=== PATIENT | female | born 1985 | race Caucasian/White ===

== ENCOUNTER 2020-11-07 07:06 | Day surgery (SDC) | payer OTHER ==
[~2020-11-07] VITALS: Ht 162.6 cm; Wt 86.9 kg
[~2020-11-07 07:06] MED LIST: AMIT50 PO; ASPI325 PO; Amitriptyline H10 MG PO; BENTYL20 MG PO; BUPRENO-NALOX1 EACH SL; Bactrim Ds Tab1 EACH PO; CEPH500 PO; CIPR500 PO; CIPRO500 MG PO; CYCL10 PO; Celebrex200 MG PO; Ciprodex Otic7.5 ML LEFTEAR; Cleocin HCl150 MG PO; Cleocin HCl300 MG PO; DICL25ER PO; ESTR2 PO; HYDACE5 PO; HYDR1TAB94 PO; HYOS.125 SL; IBUP600; IBUP600 PO; IBUP800 PO; Ibuprofen Ib200 MG PO; KETO10 PO; LEVFLO500 PO; LORCET 5-325 M1 EACH PO; Levaquin750 MG PO; Loperamide2 MG PO; MEDR150I IM; METPRE4DP PO; METR500 PO; NAPR220 PO; NAPR550 PO; NITR100CA PO; Naprosyn500 MG PO; Norco 5-325 Ta1 EACH PO; Nortriptyline H25 MG PO; OXYACE5T; OXYACE5T PO; OXYB5 PO; OXYC1TAB11 PO; PARO20 PO; POLY17UD PO; PRAZ1 PO; PROM25 PO; Percocet 10-321 EACH PO; Percocet 5-3251 EACH PO; Peridex480 ML SS; Pyridium100 MG PO; ROXICODONE5 MG PO; SERT50 PO; SULTRIDS PO; TRAZ100 PO; TRAZ50; Ultram50 MG PO; Zithromax250 MG PO; Zofran Odt4 MG PO; Zofran Odt4 MG SL
--- NOTE | 2020-11-07 08:12 | NUR ---
Ambulatory in Day Surgery History, Chart, Medications and Allergies reviewed before start of procedure. Pre-Op teaching done. Pt verbalizes understanding. Lungs clear T/O to Auscultation.
--- NOTE | 2020-11-07 11:03 | NUR ---
INTO STEP RECIEVED REPORT VSS. INCISIONS WITH BANDAIDS CDI
--- NOTE | 2020-11-07 11:47 | NUR ---
Discharge instructions reviewed with patient. Patient verbalizes understanding. Copy given to patient to take home. Patient States Post-Procedure ride home has been arranged. Discharged via wheelchair to private car for ride home.
== END 2020-11-07 11:45 | disposition home or self-care (01) ==
LOC: ORSCMMR 07:06 → ORD 09:00 → ORSCMMR 11:45
PROVIDERS: Surgery
PROC: 0FT44ZZ Resection of Gallbladder, Percutaneous Endoscopic Approach (ICD-10-PCS; principal; 2020-11-07 09:00)
PROC: BF031ZZ Plain Radiography of Gallbladder and Bile Ducts using Low Osmolar Contrast (ICD-10-PCS; principal; 2020-11-07 09:00)
DX: K80.20 Calculus of gallbladder without cholecystitis without obstruction (principal); F17.210 Nicotine dependence, cigarettes, uncomplicated; Z79.899 Other long term (current) drug therapy
CPT/HCPCS: 88304; A9270; C1729; J0690; J1100; J1885; J2250; J2405; J2704; J2710; J2765; J3010; J7120

== ENCOUNTER → 2023-10-08 | Outpatient (CLI) | payer SELFPAY ==
[2023-10-08 17:23] LABS: BASOPHILS ABSOLUTE AUTO 0.02 K/mm3 (0.00-0.23); BASOPHILS PERCENT AUTO 0 % (0-2); EOSINOPHILS ABSOLUTE AUTO 0.03 K/mm3 (0.00-0.68); EOSINOPHILS PERCENT AUTO 0 % (0-6); Hematocrit 39.8 % (33.0-51.0); Hemoglobin 13.2 g/dL (11.5-16.0); IMMATURE GRAN ABSOLUTE AUTO 0.01 K/mm3 (0.00-0.10); IMMATURE GRAN PERCENT AUTO 0 % (0-1); LYMPHOCYTES ABSOLUTE AUTO 2.47 K/mm3 (0.84-5.20); LYMPHOCYTES PERCENT AUTO 35 % (21-46); MONOCYTES ABSOLUTE AUTO 0.39 K/mm3 (0.16-1.47); MONOCYTES PERCENT AUTO 6 % (4-13); Mean Corpuscular HGB 31.4 pg (26.0-34.0); Mean Corpuscular HGB Conc 33.2 g/dL (31.5-36.5); Mean Corpuscular Volume 95 fL (80-100); Mean Platelet Volume 8.3 fL (9.1-12.4); NEUTROPHILS ABSOLUTE AUTO 4.14 K/mm3 (1.96-9.15); NEUTROPHILS PERCENT AUTO 59 % (41-73); Platelet Count 412 K/mm3 (150-400); RDW Coefficient Variation 13.3 % (11.7-14.2); RDW Standard Deviation 45.8 fL (35.1-46.3); White Blood Cell Count 7.06 K/mm3 (4.00-11.30)
[2023-10-08 17:26] LABS: Bun/Creatinine Ratio 19.6 (12.0-20.0); Calcium, Blood 9.9 mg/dL (8.5-10.1); Creatinine, Blood 1.07 mg/dL (0.40-1.00); Potassium, Blood 3.3 mmol/L (3.5-5.5)
== END ==
LOC: LAB SHORT 17:13 → LAB 17:13
PROVIDERS: Physician Assistant
DX: R11.2 Nausea with vomiting, unspecified (principal)
CPT/HCPCS: 80048; 85025